=== PATIENT | female | born 1960 | race Caucasian/White ===

== ENCOUNTER 2023-12-30 02:50 | Outpatient (CLI) | payer MEDICARE, BC, SELFPAY ==
--- NOTE | 2023-12-30 | DI.MAMMO_ITS ---
Exam(s) MAMMO SCREENING EXAM: MAMMO SCREENING CLINICAL HISTORY: Screening, Z12.39. TECHNIQUE: Bilateral full field digital CC and MLO mammographic images were obtained with 3D tomosyn thesis and utilizing computer aided detection (CAD). COMPARISON: Prior mammograms were not able to be obtained FINDINGS: No significant focal right breast findings. In the left breast there is an asymmetric density-possible nodule located 3 cm below the nipple level on the MLO view, this measuring approximately 9 by 5 mm. No malignant-appearing microcalcification groups in either breast. There is no significant architectural distortion nor skin thickening-retraction. IMPRESSION: 1. No radiographic evidence of malignancy in the right breast. 2. Left breast asymmetric density. Spot compression MLO view and ultrasound recommended. BI-RADS Category 0 - Incomplete: Need additional imaging evaluation Breast Density - Category B - Scattered areas of fibroglandular density Breast density Category C or D implies that the patient has dense breast tissue. Dense breast tissue can make it harder to find cancer on a mammogram. Dense breast tissue is also associated with an incr eased risk of breast cancer. This information about the result of the mammogram report was provided to the patient to raise their awareness. Use this report when you speak with the patient about their risks for breast cancer, which includes their family history. At that time, you may recommend additional screening tests (Ultrasoun d or MRI) as these tests may add significant information. A negative radiographic report should not delay biopsy if a dominant or clinically suspicious mass is present. Up to ten percent of cancers are not identified on mammography. A negative report may reinforce clinical impression. Adenosis and dense breasts may obscure an underlying neoplasm. False positive reports average 6 to 10%. Patient will receive a letter notifying them of these results.
--- NOTE | 2023-12-30 | DI.DEXA_ITS ---
Exam(s) XR DEXA BONE DENSITY W/WO WENDI EXAM: XR DEXA BONE DENSITY W/WO WENDI CLINICAL HISTORY: Osteopenia, M85.88 TECHNIQUE: HoloEmcore C densitometer analysis of left hip, lumbar spine and left forearm. Lat eral survey image of the thoracic and lumbar spine. COMPARISON: No exams were available for comparison FINDINGS: Lateral view of the thoracic and lumbar spine shows no evidence of compression fractures. Bone mineral density measurements of the lumbar spine correspond to a total T-score of -1.4, in the osteopenic range. Bone mineral density measurements of the left hip correspond to a total T-score of -0.5. The femora l neck T-score is -1.1 consistent with mild osteopenia.. Theleft forearm bone mineral density measurements correspond to a T-score of the distal 3rd of -2.1, in the osteopenic range.. IMPRESSION: Osteopenia of the spine, hip and forearm.
== END 2023-12-30 03:10 ==
PROVIDERS: Visit Provider Family Medicine
DX: M85.88 Other specified disorders of bone density and structure, other site (principal)
CPT/HCPCS: 77063; 77067; 77080

== ENCOUNTER 2024-01-06 02:05 | Outpatient (CLI) | payer MEDICARE, SELFPAY ==
--- NOTE | 2024-01-06 | DI.MAMMO_ITS ---
Exam(s) MG MAMMO SCREEN CALL BACK UNI US BREAST LT LIMITED EXAM: MG MAMMO SCREEN CALL BACK UNI and U/S breast LT limited CLINICAL HISTORY: Asymmetric density-possible nodule 3 cm below nipple, lt, 9 x 5 mm. TECHNIQUE: Craniocaudal and mediolateral oblique Full Field Digital Mammography views of the left br east with Computer Aided Diagnosis followed by Tomosynthesis and left breast ultrasound. COMPARISON: Comparison is made with baseline examination from 12/30/2023. FINDINGS: Mammography/Tomosynthesis: Masses/Architectural Distortion: The area inferior to the nipple on the MLO view is less concerning o n the additional view. There is an area of asymmetry just lateral to the nipple in the retroareolar region. On additional view, this area is also considered less concerning. Microcalcifictions: No suspicious pleomorphic-type are seen. Skin Thickening/Nipple Retraction: None. Limited left breast US: Echotexture: Normal appearance of the glandular tissue. Shadowing: No suspicious foci. Cyst: None. Solid lesions: None seen. Ductal dilation: None. IMPRESSION: 1. No definite evidence of malignancy is noted. 2. A six-month follow-up left mammogram is requested for re-evaluation. Ultrasound may be indicated at that time. 3. The findings were discussed with the patient on the date of the examination. BI-RADS Category 3 - 6 month - Probably Benign Finding: Recommend follow-up imaging in 6 months Breast Density - Category B - Scattered areas of fibroglandular density Breast density Category C or D implies that the patient has dense breast tissue. Dense breast tissue can make it harder to find cancer on a mammogram. Dense breast tissue is also associated with an incr eased risk of breast cancer. This information about the result of the mammogram report was provided to the patient to raise their awareness. Use this report when you speak with the patient about their risks for breast cancer, which includes their family history. At that time, you may recommend additional screening tests (Ultrasoun d or MRI) as these tests may add significant information. A negative radiographic report should not delay biopsy if a dominant or clinically suspicious mass is present. Up to ten percent of cancers are not identified on mammography. A negative report may reinforce clinical impression. Adenosis and dense breasts may obscure an underlying neoplasm. False positive reports average 6 to 10%. Patient will receive a letter notifying them of these results.
== END 2024-01-06 02:25 ==
LOC: DI 02:05
PROVIDERS: Visit Provider Family Medicine
DX: R92.8 Other abnormal and inconclusive findings on diagnostic imaging of breast (principal); Z12.31 Encounter for screening mammogram for malignant neoplasm of breast
CPT/HCPCS: 76642; 77063; 77067

== ENCOUNTER 2024-02-18 11:54 | Outpatient (REF) | payer MEDICARE, SELFPAY ==
[2024-02-18 16:49] LABS: Anion Gap 8.1 mmol/L (3-11); BUN 17 mg/dL (7-18); CO2 28.9 mmol/L (21.0-32.0); CREATININE 0.9 mg/dL (0.55-1.02); Calcium 9.6 mg/dL (8.5-10.1); Calculated LDL 178 mg/dL (<100); Chloride 106 mmol/L (98-107); Cholesterol 291 mg/dL (<200); Estimated GFR 70.95 (mL/min/1.73m2); Glucose 94 mg/dL (74-106); HDL Cholesterol 80 mg/dL (40-60); Potassium 4.6 mmol/L (3.5-5.1); Sodium 143 mmol/L (136-145); Triglyceride 169 mg/dL (<150); Vitamin D 25 Total 23.8 ng/mL (30-100)
[2024-02-19 10:40] LABS: Hepatitis C Ab w Rflx HCV PCR Negative (Negative)
[2024-02-19 12:17] LABS: HIV-1/2 Ag & Ab Screen Negative (Negative)
== END 2024-02-18 11:55 | disposition home or self-care (01) ==
LOC: NCHCN 11:54
PROVIDERS: Visit Provider Family Medicine
DX: Z00.00 Encounter for general adult medical examination without abnormal findings (principal)
CPT/HCPCS: 80048; 80061; 82306; 86803; 87389

== ENCOUNTER 2024-02-25 15:18 | Outpatient (REF) | payer MEDICARE, SELFPAY ==
--- NOTE | 2024-02-25 08:00 | PAPFT_PTH ---
PATIENT: Sherri Warren LOC: [facility]#:[id number] AGE/SX: 63/F ROOM: RE02/25/[address]: Theresa Cuellar : 1960 BED: DIS: 02/25/2024 SPEC #: [id number] RECD: 02/25/24 18:14 STATUS: BLAIRE REQ #: [id number] GINA: 02/25/24 08:[address]: Tehresa Cuellar DEPT: [facility] Cytology RECD BY: Zohreh Medina Tissues: 1 - CX/ENDOCX FOR PAP SMEARS Procedures: PAP THIN PREP/UVM Screening HPV DNA PROBE Comments: [id number] (HPV 16 & 18/45)
== END 2024-02-25 15:19 | disposition home or self-care (01) ==
LOC: NCHCN 15:18
PROVIDERS: PCP Family Medicine; Visit Provider Family Medicine
DX: Z11.51 Encounter for screening for human papillomavirus (HPV) (principal); Z01.419 Encounter for gynecological examination (general) (routine) without abnormal findings
CPT/HCPCS: 88142; 87624

== ENCOUNTER 2024-05-15 11:59 | Outpatient (CLI) | payer MEDICARE, SELFPAY ==
--- NOTE | 2024-05-15 | DI.RAD_ITS ---
Exam(s) XR CHEST 2V PA LATERAL EXAM: XR CHEST 2V PA LATERAL CLINICAL HISTORY: ACUTE UPPER RESPIRATORY INFECTION, J06.9 TECHNIQUE: 2D digital imaging was performed of the chest. Two images were obtained. PA and lateral views were obtained. COMPARISON: No exams were available for comparison FINDINGS: MEDIASTINUM: Normal. HEART: Normal. PULMONARY VASCULATURE: Normal. LUNGS: Clear. PLEURAL SPACE: No pleural effusion or pneumothorax. BONE:Within normal limits for the patient's age. Sideplate and screws are seen in the right clavicle . OTHER FINDINGS:Normal. IMPRESSION: No acute pulmonary findings. DATA REPOSITORY: RADIATION DOSE DELIVERED:
== END 2024-05-15 12:19 ==
LOC: DI 12:00
PROVIDERS: PCP Family Medicine; Visit Provider Physician Assistant Medical
DX: J06.9 Acute upper respiratory infection, unspecified (principal)
CPT/HCPCS: 71046

== ENCOUNTER 2024-06-17 03:50 | Outpatient (CLI) | payer MEDICARE, SELFPAY ==
--- NOTE | 2024-07-30 14:23 | W.NUTRFU ---
Date of service: 06/17/24 Time of Service: 13:00 Nutrition Note NOTE: Sherri in for referred nutrition visit regading wt mgt. After brief diet hx of food choices and usual patterns collected, suggested highlight the following goals: -aim for real food, avoid processed food or choose minimally processed foods. -Avoid skipping breakfast - try to get at least 30g protein within first hour of waking and combine with fiber -track and identify average added sugar intake and adjust habits/food choices until 20g or less is average most days -track fiber in diet and make goal a minimal of 30g per day from whole plant foods -set aside time for exercise on top of a baseline of activty - really make an attempt to strengthen muscles for increased insulin sensitivity. We reviewed above in some detail with tips. Sherri has my contact info should she have questions, desire follow up, or require additional resrouces to help her in her wt loss goal. Time Spent in Nutritional Counseling and Treatment: 25 min
== END 2024-06-17 03:51 | disposition home or self-care (01) ==
PROVIDERS: PCP Family Medicine; Visit Provider Dietitian, Registered
DX: Z68.25 Body mass index [BMI] 25.0-25.9, adult (principal); E66.9 Obesity, unspecified
CPT/HCPCS: 00123; 97802

== ENCOUNTER 2024-06-23 03:14 | Outpatient (CLI) | payer MEDICARE, SELFPAY ==
[2024-06-23] MEDS: Methacholine 100 MG VIAL IH (17:11)
[2024-06-23] MEDS: Albuterol HFA 18 GM 200 PUFF INH IH (17:12)
[2024-06-23] MEDS: Inhaler, Assist Device 1 EACH MC (17:12)
--- NOTE | 2024-06-28 16:11 | PFT_ITS ---
Date of service: 06/23/24 Time of Service: 13:09 Pulmonary Function Test Result Indications: Chronic cough Interpretation Spirometry: No airflow limitation at baseline. There was a 14% decrease in FEV1 with admini stration of 16.0mg/mL methacholine. Lung Volumes: Normal lung volumes Diffusion Capacity: Normal diffusion Airway Pressure: Normal airways resistance Impression Normal pulmonary function testing with a negative methacholine. Clinical Correlation therefore is recommended.
== END 2024-06-23 03:15 | disposition home or self-care (01) ==
LOC: RT 03:14
PROVIDERS: PCP Family Medicine; Visit Provider Student in an Organized Health Care Education/Training Program
DX: R05.3 Chronic cough (principal)
CPT/HCPCS: 94060; 94070; 94726; 94729; J7674

== ENCOUNTER 2024-07-07 00:39 | Outpatient (CLI) | payer MEDICARE, SELFPAY ==
--- NOTE | 2024-07-07 | DI.US_ITS ---
Exam(s) US BREAST LT COMPLETE MG MAMMO DIAGNOSTIC UNI EXAM: MG MAMMO DIAGNOSTIC UNI-LEFT AND COMPLETE LEFT BREAST ULTRASOUND CLINICAL HISTORY: ABNL MAMMO, R92.8, 6 MO F/U LT BREAST,asymmetry. TECHNIQUE: Unilateral LEFT BREAST CC AND MLO spot mammographic images were obtained with 3D tomosynt hesis technique and utilizing computer aided detection (CAD). COMPLETE LEFT BREAST ULTRASOUND was also performed including all 4 quadrants of the left breast as we ll as left axilla. During today's ultrasound exam a cutaneous Beakley spot was placed over a finding the 7 o'clock posit ion of the left breast and thereafter additional repeat CC and MLO mammographic views of the left az ast were performed for correlation purposes. COMPARISON: Prior mammograms were reviewed, as was prior ultrasound exam FINDINGS: DIAGNOSTIC LEFT BREAST MAMMOGRAM: The previously described asymmetric density seen on the MLO view inferior to the nipple measuring ap proximately 10 x 4 mm is unchanged mammographically from December 2023. This was not evident on the baseline mammogram of March 2020. There are no new additional nodular densities. There are no malignant-appearing microcalcification g roups in this region or elsewhere in either breast. There is no architectural distortion or skin thickening-retraction. We proceeded with ultrasound.. COMPLETE LEFT BREAST ULTRASOUND: There is a solitary finding of the left breast again noted which is at the 7 o'clock position, measur ing approximately 6 x 3 mm. This may possibly represent the slightly dilated duct with inspissated m aterial. It does not exhibit decreased through transmission. There are no other focal ultrasound fi ndings in all 4 quadrants of the left breast. At this point a cutaneous Beakley spot was placed over this finding at 7 o'clock position using ultra sound guidance and thereafter the patient was brought back to the mammography suite for repeat CC and MLO views of the left breast. Indeed this showed exact correlation between the ultrasound and mammo gram finding. IMPRESSION: 1. Stable appearance of nodular density located approximately 3 mm inferior to the nipple on the MLO view of the left breast, unchanged from prior imaging of December 2023 but not evident on the mammog harman of March 2020 (there are no interval mammograms between 2019 and 2023). This corresponds to a finding at the 7 o'clock position ultrasound also appears unchanged from ultrasound images of 2023 Appropriate follow-up, as discussed by myself with the patient today, is repeat breast imaging in 6 m [facility] (December 2024) which is a time ower in next yearly bilateral mammogram. At that time repeat ultrasound should also be performed. This left breast finding must be established to be stable for a t least 2 years duration on a six-month basis. The patient was informed of the findings and follow-up recommendations by myself prior to leaving the department today. BI-RADS Category 3 - 6 month - Probably Benign Finding: Recommend follow-up mammography in 6 months Breast Density - Category B - Scattered areas of fibroglandular density Breast density Category C or D implies that the patient has dense breast tissue. Dense breast tissue can make it harder to find cancer on a mammogram. Dense breast tissue is also associated with an incr eased risk of breast cancer. This information about the result of the mammogram report was provided to the patient to raise their awareness. Use this report when you speak with the patient about their risks for breast cancer, which includes their family history. At that time, you may recommend additional screening tests (Ultrasoun d or MRI) as these tests may add significant information. A negative radiographic report should not delay biopsy if a dominant or clinically suspicious mass is present. Up to ten percent of cancers are not identified on mammography. A negative report may reinforce clinical impression. Adenosis and dense breasts may obscure an underlying neoplasm. False positive reports average 6 to 10%. Patient will receive a letter notifying them of these results.
== END 2024-07-07 00:59 ==
LOC: DI 00:39
PROVIDERS: PCP Family Medicine; Visit Provider Family Medicine
DX: Z12.31 Encounter for screening mammogram for malignant neoplasm of breast (principal); R92.8 Other abnormal and inconclusive findings on diagnostic imaging of breast
CPT/HCPCS: 76642; 77061; 77065; G0279

== ENCOUNTER 2024-08-26 08:46 | Outpatient (REF) | payer MEDICARE, SELFPAY ==
[2024-08-26 21:30] LABS: Calculated LDL 173 mg/dL (<100); Cholesterol 268 mg/dL (<200); HDL Cholesterol 74 mg/dL (>or=50); Triglyceride 108 mg/dL (<150)
== END 2024-08-26 08:47 | disposition home or self-care (01) ==
LOC: NCHCN 08:46
PROVIDERS: PCP Family Medicine; Visit Provider Family Medicine
DX: E78.5 Hyperlipidemia, unspecified (principal)
CPT/HCPCS: 80061

== ENCOUNTER 2024-12-16 14:05 | Outpatient (CLI) | payer MEDICARE, SELFPAY ==
--- NOTE | 2024-12-16 | DI.US_ITS ---
Exam(s) MG MAMMO DIAGNOSTIC BI US BREAST LT LIMITED EXAM: MAMMO DIAGNOSTIC BI and U/S breast LT limited CLINICAL HISTORY: ABNL FINDINGS ON MAMMO R92.8 6 MO FU MAMMO, LT BREAST FINDINGS. TECHNIQUE: Craniocaudal and mediolateral oblique Full Field Digital Mammography views with Computer Aided Diagnosis followed by Tomosynthesis and limited left breast ultrasound. COMPARISON: Comparison is made with prior examinations. FINDINGS: Mammography/Tomosynthesis: Masses/Architectural Distortion: The asymmetric density in the inferior retroareolar region of the left breast appears stable. It appears to represent overlying fibroglandular tissue. There are no suspicious masses or areas of architectural distortion in either breast. Microcalcifictions: No suspicious pleomorphic-type are seen. Skin Thickening/Nipple Retraction: None. Limited left breast US: Echotexture: Normal appearance of the glandular tissue. Shadowing: No suspicious foci. Cyst: None. Solid lesions: The ovoid lesion at the 7 o'clock position of the left breast 3 cm from the nipple is again seen. It measures 0.6 x 0.3 x 0.5 cm. This is unchanged compared to the prior examination. Ductal dilation: None. IMPRESSION: 1. Stable left breast lesion. 2. A six-month follow-up left mammogram and ultrasound is requested for re- evaluation. This is a negative right mammogram and yearly mammography on the right is recommended. 3. The findings were discussed with the patient on the date of the examination. BI-RADS Category 3 - 6 month - Probably Benign Finding: Recommend follow-up imaging in 6 months Breast Density - Category B - There are scattered areas of fibroglandular density. Breast density Category C or D implies that the patient has dense breast tissue. Dense breast tissue can make it harder to find cancer on a mammogram. Dense breast tissue is also associated with an increased risk of breast cancer. This information about the result of the mammogram report was provided to the patient to raise their awareness. Use this report when you speak with the patient about their risks for breast cancer, which includes their family history. At that time, you may recommend additional screening tests (Ultrasound or MRI) as these tests may add significant information. A negative radiographic report should not delay biopsy if a dominant or clinically suspicious mass is present. Up to ten percent of cancers are not identified on mammography. A negative report may reinforce clinical impression. Adenosis and dense breasts may obscure an underlying neoplasm. False positive reports average 6 to 10%. Patient will receive a letter notifying them of these results.
== END 2024-12-16 14:25 ==
LOC: DI 14:05
PROVIDERS: PCP Family Medicine; Visit Provider Family Medicine
DX: Z12.31 Encounter for screening mammogram for malignant neoplasm of breast (principal); N63.24 Unspecified lump in the left breast, lower inner quadrant
CPT/HCPCS: 76642; 77062; 77066; G0279

== ENCOUNTER 2025-02-25 08:28 | Outpatient (REF) | payer MEDICARE, SELFPAY ==
[2025-02-25 18:00] LABS: Vitamin D 25 Total 25 ng/mL (30-100)
[2025-02-25 18:07] LABS: Anion Gap 8.6 mmol/L (3-11); BUN 19 mg/dL (9-23); CO2 25.4 mmol/L (20.0-31.0); Calcium 9.5 mg/dL (8.3-10.6); Chloride 109 mmol/L (98-107); Cholesterol 287 mg/dL (<200); Glucose 86 mg/dL (74-106); HDL Cholesterol 87 mg/dL (>40); Potassium 4.1 mmol/L (3.5-5.1); Sodium 143 mmol/L (136-145)
== END 2025-02-25 08:29 | disposition home or self-care (01) ==
LOC: NCHCN 08:28
PROVIDERS: PCP Family Medicine; Visit Provider Family Medicine
DX: M85.88 Other specified disorders of bone density and structure, other site (principal); E78.5 Hyperlipidemia, unspecified
CPT/HCPCS: 80048; 80061; 82306